=== PATIENT | female | born 1980 | race African-American/Black ===

== ENCOUNTER 2017-10-28 12:02 | Day surgery (SDC) | payer OTHER ==
[2017-10-15 15:38] VITALS: BMI 29.2
[2017-10-28 12:48] VITALS: BP 95/59; PULSE 69; TEMP 98
== END 2017-10-28 15:10 | disposition home or self-care (01) ==
LOC: JASU-SURG 12:02
PROVIDERS: ATTEND Orthopaedic Surgery Adult Reconstructive Orthopaedic Surgery
PROC: 0RQJ4ZZ Repair Right Shoulder Joint, Percutaneous Endoscopic Approach (ICD-10-PCS; principal; 2017-10-28)
DX: Z53.8 Procedure and treatment not carried out for other reasons (principal)
CPT/HCPCS: 84703

== ENCOUNTER 2017-11-23 05:01 | Day surgery (SDC) | payer OTHER ==
[2017-11-19 13:07] VITALS: BMI 29.2
[2017-11-23] MEDS ORDERED: ROPIVACAINE HCL 0.5% 30ML VIAL ONE (07:09)
[2017-11-23] MEDS ORDERED: MIDAZOLAM HCL 2 MG/2 ML SINGLE DOSE VIAL ONE ×3 (07:10→07:59)
[2017-11-23] MEDS ORDERED: SUCCINYLCHOLINE CHLORIDE 200 MG/10 ML VIAL ONE (07:25)
[2017-11-23] MEDS ORDERED: PROPOFOL 20 ML ONE ×3 (07:25)
[2017-11-23] MEDS ORDERED: ePHEDrine SULFATE 50 MG/1 ML AMPULE ONE (07:25)
[2017-11-23] MEDS ORDERED: oxyCODONE HCL 5 MG TABLET PO PRN (08:05)
[2017-11-23] MEDS ORDERED: ONDANSETRON 4 MG/2 ML VIAL IVPUSH PRN (08:05)
[2017-11-23] MEDS ORDERED: LACTATED RINGERS SOLUTION 1,000 ML IV SCH (08:15)
[2017-11-23] MEDS ORDERED: ceFAZolin SODIUM 1 GM VIAL IVPB ONE (08:15)
--- NOTE | 2017-11-23 10:08 | OP ---
Operative Note - Note: Operative Date: 11/23/17 Pre-Operative Diagnosis: 1. Left shoulder impingement syndrome. 2. Left rotator cuff tear Operation: Left shoulder open: 1. Neer decompression. 2. Jan procedure. 3. Rotator cuff repair. Anaesthesia: Interscalene block. Sedation. LMA Post-Operative Diagnosis: Same as Pre-op Surgeon: Jose Kohler Environmental Scientist: Remi Kohler (Co-Surgeon) Anesthesia: General Specimens Removed: 1. Left distal clavicle. 2. Undercutting acromioplasty Estimated Blood Loss (mls): 25 Operative Report Dictated: Yes
[2017-11-23] MEDS ORDERED: KETOROLAC TROMETHAMINE 30 MG/1 ML VIAL IVPUSH ONE (10:26)
[2017-11-23 12:33] VITALS: TEMP 97.8
[2017-11-23 13:41] VITALS: BP 112/60; PULSE 76
--- NOTE | 2017-11-24 11:44 | OP ---
DATE OF OPERATION: 11/23/2017 SURGEON: Jose Kohler MD CO-SURGEON: Remi Kohler MD PREOPERATIVE DIAGNOSIS: Left impingement syndrome with rotator cuff tear of the shoulder. POSTOPERATIVE DIAGNOSIS: Left impingement syndrome with rotator cuff tear of the shoulder. OPERATION PERFORMED: Acromioplasty with associated release of acromioclavicular ligament, lateral claviculectomy (near decompression), and associated Jan procedure with repair of rotator cuff. ANESTHESIA: General with scalene block. ANTIBIOTICS: Ancef 2 g, vancomycin 1 g. OPERATION DETAILS: Patient correctly identified, brought in the operating room. Timeout was called. Patient subjected to general anesthesia, placed in a semi-Ivey position with flexion at the waist, a bolster placed at the inferior pole of the scapula, and the left upper extremity was free draped, skin prepped with Betadine scrub, followed by solution, wiped off with alcohol, and DuraPrep applied. The initial incision was made from the tip of the coracoid to the tip of the acromion on the left-hand side, this in the lines of Yolie. Gelpi retractors were placed in the subcutaneous tissues. The tissues were lifted to facilitate easy areolar tissue dissection to the muscle. The lateral clavicle was located, and 2 Hohmann retractors placed posteriorly and inferiorly to the clavicle and excision of the distal 1/3 of the clavicle in a beveled fashion performed with an oscillating saw. The soft tissue elements of the capsule of the joint were maintained. The fibers of deltoid were gently split, but more of it was lifted with the Hohmann retractor to gain easy access to the AC ligament. This was transected right into the actual shoulder joint, freeing the entire subacromial space completely. Bleeding from the appropriate thoracoacromial artery was dealt with with bipolar Bovie. A blunt Hohmann was placed in the undersurface of the acromion. The humeral head was depressed to facilitate ease of the oscillating saw, which resected the undersurface of the acromion, thus facilitating a lifting and raising of the roof of the shoulder joint. This completed the acromioplasty. The Jan procedure was then finalized and the transection of the AC ligament, bringing about a complete Neer decompression. The rotator cuff was inspected. A small tear noted. The edges were resected with a 15-blade knife and a suture placed into the actual tear to approximate the tissues appropriately. The wounds were thoroughly lavaged. Closure as follows: The remaining capsule imbricated with 1 Vicryl into the acromioclavicular joint; this as a full-excision arthroplasty. The deltoid was approximated with 1 Vicryl, subcutaneous tissue 2-0 Vicryl, skin 3-0 Monocryl with Steri-Strips. Operation went extremely well. No complications. MD SCOTT Theodore/[id number]
--- NOTE | 2017-11-25 15:12 | PATH ---
Surgical Pathology Report Patient Name: STEVE SHARIF [facility]. Rec. #: [id number] /Age/Gender: 1980 (Age: 37) / F Account: [id number] Location: [facility] SURGICAL Taken: 11/23/2017 Received: 11/23/2017 Reported: 11/25/2017 Physicians: Jose Kohler M.D. Specimen(s) Received DISTAL CLAVICULECTOMY WITH ACRIONOPLASTY Clinical History Impingement syndrome left shoulder Final Diagnosis CLAVICLE, LEFT, DISTAL CLAVICULECTOMY AND ACRIOMOPLASTY: UNREMARKABLE BONE, CARTILAGE, AND SCANT SOFT TISSUE. Electronically Signed Jing Burciaga M.D. Gross Description Received in formalin labeled "distal claviculectomy and acromioplasty," are 2 powell, irregular, unremarkable portions of bone measuring 1.6 x 1.1 x 0.2 cm and 2.1 x 1.3 x 0.8 cm. Uniform Attendant sections are submitted in one cassette, following decalcification. /[facility]/24/[facility]
== END 2017-11-23 12:45 | disposition home or self-care (01) ==
LOC: JASU-SURG 05:01
PROVIDERS: ATTEND Orthopaedic Surgery Orthopaedic Surgery of the Spine
PROC: 0RNK4ZZ Release Left Shoulder Joint, Percutaneous Endoscopic Approach (ICD-10-PCS; 2017-11-23)
PROC: 0PBB4ZZ Excision of Left Clavicle, Percutaneous Endoscopic Approach (ICD-10-PCS; 2017-11-23)
PROC: 0LQ24ZZ Repair Left Shoulder Tendon, Percutaneous Endoscopic Approach (ICD-10-PCS; principal; 2017-11-23 08:00)
DX: M75.42 Impingement syndrome of left shoulder (principal); M75.102 Unspecified rotator cuff tear or rupture of left shoulder, not specified as traumatic
CPT/HCPCS: 88304-TC; 94760